=== PATIENT | male | born 1970 | race Caucasian/White ===

== ENCOUNTER 2021-07-08 09:06 | Emergency (ER) | payer SELFPAY ==
[2021-07-08] MEDS ORDERED: CASIRIVIMAB/IMDEVIMAB 10 ML in SODIUM CHLORIDE 0.9% 100 ML IV ONE (10:00)
== END 2021-07-08 11:29 | disposition home or self-care (01) ==
LOC: ER 09:11
DX: R05 Cough (principal); U07.1 COVID-19
CPT/HCPCS: 99283